=== PATIENT | male | born 1995 | race Caucasian/White ===

== ENCOUNTER 2018-07-18 21:21 | Emergency (ER) | payer SELFPAY ==
[~2018-07-18] VITALS: Ht 170.2 cm; Wt 59.1 kg
[2018-07-18] MEDS: LIDOCAINE HCL/PF 1% 5 ML VIAL INJ ONE (22:10)
[2018-07-18] MEDS: PERTUSS(ACELL),DIPH,TET VAC/PF 0.5 ML VIAL IM ONE (22:10)
[2018-07-18] MEDS: BACITRACIN 0.9 GM PACKET OINTMENT TP ONE (23:00)
[2018-07-18 23:16] VITALS: BP 111/71
== END 2018-07-18 23:17 | disposition home or self-care (01) ==
LOC: EMS 21:22
DX: S61.411A Laceration without foreign body of right hand, initial encounter (principal); F12.90 Cannabis use, unspecified, uncomplicated; W22.8XXA Striking against or struck by other objects, initial encounter; Y93.89 Activity, other specified; Y92.89 Other specified places as the place of occurrence of the external cause; Y99.8 Other external cause status
CPT/HCPCS: 12001; 73130; 90471; 90715; 99284; J3490